=== PATIENT | female | born 1955 | race Two or more races ===

== ENCOUNTER → 2017-07-18 | Outpatient (CLI) | payer OTHER ==
[~2017-07-18] MED LIST: CARAFATE SU1 G/10 ML PO; HYZAAR 100-121 UDTAB; JANUMET 50-1,1 UDTAB; LAMICTAL100 MG; LEVSIN/SL0.125 MG PO; PROTONIX40 MG PO; SIMVASTATIN20 MG; SYNTHROID175 MCG; VOLTAREM 50 MG PO
== END | disposition home or self-care (01) ==
LOC: PPH VACUNA 11:30
DX: Z23 Encounter for immunization (principal)

== ENCOUNTER 2017-07-28 08:57 | Outpatient (CLI) | payer OTHER | END 2017-07-28 11:14 | disposition home or self-care (01) | LOC: MAMO-SONO 08:57 | DX: N61.0 Mastitis without abscess (principal); N60.11 Diffuse cystic mastopathy of right breast; N60.12 Diffuse cystic mastopathy of left breast; Z12.31 Encounter for screening mammogram for malignant neoplasm of breast ==

== ENCOUNTER 2017-07-28 08:59 | Outpatient (CLI) | payer OTHER | END 2017-07-28 11:05 | disposition home or self-care (01) | LOC: RAD 08:59 | DX: M25.561 Pain in right knee (principal); M25.562 Pain in left knee; M25.572 Pain in left ankle and joints of left foot ==

== ENCOUNTER 2017-07-28 09:01 | Outpatient (CLI) | payer OTHER | END 2017-07-28 11:16 | disposition home or self-care (01) | LOC: MRI 09:01 | DX: M25.562 Pain in left knee (principal) | CPT/HCPCS: 73718 ==

== ENCOUNTER 2017-07-28 11:32 | Outpatient (CLI) | payer OTHER | END 2017-07-28 12:13 | disposition home or self-care (01) | LOC: NUCLEAR 11:32 | DX: M81.0 Age-related osteoporosis without current pathological fracture (principal) ==

== ENCOUNTER 2017-08-31 07:16 | Outpatient (CLI) | payer OTHER ==
[2017-09-01] MEDS ORDERED: CLONAZEPAM2 M1 PO (09:55)
== END 2017-08-31 07:33 | disposition home or self-care (01) ==
LOC: RAD 07:16 → LAB 07:16 → RAD 07:33
DX: R07.9 Chest pain, unspecified (principal)

== ENCOUNTER 2017-09-02 05:45 | Day surgery (SDC) | payer OTHER ==
[~2017-09-02 05:45] MED LIST changes: +CLONAZEPAM2 M1 PO
[2017-09-02] MEDS ORDERED: NABUMETONE500 MG PO (10:29)
[2017-09-02] MEDS ORDERED: PERCOCET 5-3251 EACH PO (10:29)
== END 2017-09-02 13:00 | disposition home or self-care (01) ==
LOC: CIR.AMB 05:45
DX: M23.322 Other meniscus derangements, posterior horn of medial meniscus, left knee (principal); M23.352 Other meniscus derangements, posterior horn of lateral meniscus, left knee; M22.42 Chondromalacia patellae, left knee; M65.862 Other synovitis and tenosynovitis, left lower leg

== ENCOUNTER 2018-04-27 09:18 | Outpatient (CLI) | payer OTHER ==
[~2018-04-27 09:18] MED LIST changes: +NABUMETONE500 MG PO; +PERCOCET 5-3251 EACH PO
== END 2018-04-27 10:59 | disposition home or self-care (01) ==
LOC: RX STUDY 09:18
DX: K30 Functional dyspepsia (principal); R13.12 Dysphagia, oropharyngeal phase

== ENCOUNTER 2018-05-12 00:05 | Emergency (ER) | payer OTHER ==
[~2018-05-12] VITALS: Ht 154.9 cm; Wt 65.3 kg
== END 2018-05-12 12:44 | disposition home or self-care (01) ==
LOC: ER 00:05
DX: K21.9 Gastro-esophageal reflux disease without esophagitis (principal)

== ENCOUNTER 2018-05-21 09:02 | Emergency (ER) | payer OTHER ==
[~2018-05-21] VITALS: Ht 154.9 cm; Wt 64.4 kg
== END 2018-05-21 11:43 | disposition home or self-care (01) ==
LOC: ER 09:02
DX: K29.60 Other gastritis without bleeding (principal)

== ENCOUNTER 2018-05-21 18:47 | Emergency (ER) | payer OTHER ==
[~2018-05-21] VITALS: Ht 154.9 cm; Wt 64.4 kg
== END 2018-05-22 09:13 | disposition home or self-care (01) ==
LOC: ER 18:47
DX: K29.60 Other gastritis without bleeding (principal); K56.690 Other partial intestinal obstruction

== ENCOUNTER 2018-05-29 08:21 | Outpatient (CLI) | payer OTHER | END 2018-05-29 08:29 | disposition home or self-care (01) | LOC: MRI 08:21 | DX: R10.2 Pelvic and perineal pain (principal); D25.9 Leiomyoma of uterus, unspecified | CPT/HCPCS: 72197 ==

== ENCOUNTER → 2019-01-03 | Outpatient (CLI) | payer OTHER | END | disposition home or self-care (01) | LOC: RAD 15:43 | DX: R22.31 Localized swelling, mass and lump, right upper limb (principal); M79.641 Pain in right hand ==

== ENCOUNTER 2019-01-04 14:05 | Outpatient (CLI) | payer OTHER | END 2019-01-04 14:06 | disposition home or self-care (01) | LOC: MAMO-SONO 14:05 | DX: Z12.31 Encounter for screening mammogram for malignant neoplasm of breast (principal); Z87.898 Personal history of other specified conditions; E03.8 Other specified hypothyroidism; E78.00 Pure hypercholesterolemia, unspecified; E11.69 Type 2 diabetes mellitus with other specified complication; D50.0 Iron deficiency anemia secondary to blood loss (chronic); N83.209 Unspecified ovarian cyst, unspecified side; D25.9 Leiomyoma of uterus, unspecified; N63.10 Unspecified lump in the right breast, unspecified quadrant; N63.20 Unspecified lump in the left breast, unspecified quadrant ==

== ENCOUNTER 2019-02-16 08:39 | Outpatient (CLI) | payer OTHER | END 2019-02-16 08:56 | disposition home or self-care (01) | LOC: LAB 08:39 | DX: N20.0 Calculus of kidney (principal) ==

== ENCOUNTER 2019-02-16 10:03 | Outpatient (CLI) | payer OTHER | END 2019-02-16 10:12 | disposition home or self-care (01) | LOC: MRI 10:03 | DX: D25.9 Leiomyoma of uterus, unspecified (principal); R10.2 Pelvic and perineal pain | CPT/HCPCS: 72197 ==

== ENCOUNTER 2019-05-02 10:26 | Emergency (ER) | payer OTHER ==
[~2019-05-02] VITALS: Ht 154.9 cm; Wt 74.4 kg
== END 2019-05-02 15:58 | disposition home or self-care (01) ==
LOC: ER 10:26
DX: S42.451A Displaced fracture of lateral condyle of right humerus, initial encounter for closed fracture (principal); W18.09XA Striking against other object with subsequent fall, initial encounter; Y93.89 Activity, other specified; Y92.89 Other specified places as the place of occurrence of the external cause; Y99.8 Other external cause status

== ENCOUNTER → 2019-05-03 | Outpatient (CLI) | payer OTHER | END | disposition home or self-care (01) | LOC: RAD 11:02 | DX: Z01.812 Encounter for preprocedural laboratory examination (principal) ==

== ENCOUNTER → 2019-05-08 | Day surgery (SDC) | payer OTHER | END | disposition home or self-care (01) | LOC: ADM 05-04 12:00 → CIR.AMB 07:48 → ADM 12:00 → CIR.AMB 21:00 | DX: S42.451A Displaced fracture of lateral condyle of right humerus, initial encounter for closed fracture (principal) ==

== ENCOUNTER 2019-06-04 09:11 | Outpatient (CLI) | payer OTHER | END 2019-06-04 09:56 | disposition home or self-care (01) | LOC: NUCLEAR 09:11 | DX: I82.622 Acute embolism and thrombosis of deep veins of left upper extremity (principal) ==

== ENCOUNTER → 2019-06-04 | Outpatient (CLI) | payer OTHER | END | disposition home or self-care (01) | LOC: RAD 11:31 | DX: M25.521 Pain in right elbow (principal) ==

== ENCOUNTER 2019-07-13 12:18 | Outpatient (CLI) | payer OTHER | END 2019-07-13 12:22 | disposition home or self-care (01) | LOC: RAD 12:18 | DX: M25.521 Pain in right elbow (principal) ==

== ENCOUNTER → 2019-07-13 | Outpatient (CLI) | payer OTHER | END | disposition home or self-care (01) | LOC: SONOGRAMA 09:43 | DX: M25.511 Pain in right shoulder (principal) ==

== ENCOUNTER 2019-10-23 11:57 | Outpatient (CLI) | payer OTHER | END 2019-10-23 12:02 | disposition home or self-care (01) | LOC: RAD 11:57 | PROVIDERS: ATTEND Orthopaedic Surgery Hand Surgery | DX: S59.801A Other specified injuries of right elbow, initial encounter (principal) ==

== ENCOUNTER 2020-03-24 13:36 | Outpatient (CLI) | payer OTHER | END 2020-03-24 14:21 | disposition home or self-care (01) | LOC: RAD 13:36 | PROVIDERS: ATTEND Specialist | DX: I10 Essential (primary) hypertension (principal) ==

== ENCOUNTER 2020-07-23 10:48 | Outpatient (CLI) | payer OTHER | END 2020-07-23 12:41 | disposition home or self-care (01) | LOC: MAMO-SONO 10:48 | PROVIDERS: ATTEND Obstetrics & Gynecology | DX: Z12.31 Encounter for screening mammogram for malignant neoplasm of breast (principal); N60.11 Diffuse cystic mastopathy of right breast; N60.12 Diffuse cystic mastopathy of left breast; J44.1 Chronic obstructive pulmonary disease with (acute) exacerbation; M65.30 Trigger finger, unspecified finger ==

== ENCOUNTER → 2020-12-02 13:36 | Outpatient (CLI) | payer OTHER | END | disposition home or self-care (01) | LOC: MRI 13:15 | PROVIDERS: ATTEND Internal Medicine | DX: M25.562 Pain in left knee (principal); M17.12 Unilateral primary osteoarthritis, left knee; I70.0 Atherosclerosis of aorta; M25.552 Pain in left hip; M54.5 Low back pain | CPT/HCPCS: 73721 ==

== ENCOUNTER 2020-12-26 14:11 | Outpatient (CLI) | payer OTHER | END 2020-12-26 14:13 | disposition home or self-care (01) | LOC: NUCLEAR 14:11 | PROVIDERS: ATTEND Internal Medicine | DX: M81.0 Age-related osteoporosis without current pathological fracture (principal) ==

== ENCOUNTER 2021-06-26 10:56 | Outpatient (CLI) | payer OTHER | END 2021-06-26 10:58 | disposition home or self-care (01) | LOC: NUCLEAR 10:56 | PROVIDERS: ATTEND Psychiatry & Neurology Psychiatry | DX: Z86.73 Personal history of transient ischemic attack (TIA), and cerebral infarction without residual deficits (principal) ==

== ENCOUNTER 2021-06-30 12:07 | Outpatient (CLI) | payer OTHER | END 2021-06-30 12:13 | disposition home or self-care (01) | LOC: SONOGRAMA 12:07 | PROVIDERS: ATTEND Psychiatry & Neurology Psychiatry | DX: E03.9 Hypothyroidism, unspecified (principal) ==

== ENCOUNTER 2021-07-23 10:49 | Outpatient (CLI) | payer OTHER | END 2021-07-23 10:57 | disposition home or self-care (01) | LOC: SONOGRAMA 10:49 | PROVIDERS: ATTEND Pathology Anatomic Pathology & Clinical Pathology | DX: E04.1 Nontoxic single thyroid nodule (principal) ==

== ENCOUNTER 2021-09-21 08:00 | Outpatient (CLI) | payer OTHER | END 2021-09-21 08:30 | disposition home or self-care (01) | LOC: PPH VACUNA 08:00 | PROVIDERS: ATTEND Emergency Medicine Pediatric Emergency Medicine | DX: Z23 Encounter for immunization (principal) ==

== ENCOUNTER 2022-02-26 09:56 | Outpatient (CLI) | payer OTHER | END 2022-02-26 10:06 | disposition home or self-care (01) | LOC: PPH VACUNA 09:56 | PROVIDERS: ATTEND Emergency Medicine Pediatric Emergency Medicine | DX: Z23 Encounter for immunization (principal) ==

== ENCOUNTER → 2022-03-02 | Outpatient (CLI) | payer OTHER | END | disposition home or self-care (01) | LOC: MAMO-SONO 12:56 | PROVIDERS: ATTEND Internal Medicine | DX: Z12.31 Encounter for screening mammogram for malignant neoplasm of breast (principal); N63.0 Unspecified lump in unspecified breast ==

== ENCOUNTER → 2022-08-11 | Outpatient (CLI) | payer OTHER | END | disposition home or self-care (01) | LOC: SONOGRAMA 12:41 | PROVIDERS: ATTEND Obstetrics & Gynecology | DX: R10.2 Pelvic and perineal pain (principal) ==

== ENCOUNTER → 2023-06-08 | Outpatient (CLI) | payer OTHER | END | disposition home or self-care (01) | LOC: RAD 11:58 | PROVIDERS: ATTEND Internal Medicine | DX: J44.1 Chronic obstructive pulmonary disease with (acute) exacerbation (principal) ==

== ENCOUNTER 2025-05-09 15:39 | Outpatient (CLI) | payer OTHER | END 2025-05-09 15:42 | disposition home or self-care (01) | LOC: RAD 15:39 | DX: S22.41XG Multiple fractures of ribs, right side, subsequent encounter for fracture with delayed healing (principal); X58.XXXD Exposure to other specified factors, subsequent encounter ==